=== PATIENT | female | born 1985 | race Caucasian/White ===

== ENCOUNTER 2021-03-05 21:17 | Emergency (ER) | payer SELFPAY ==
[2021-03-05 21:25] VITALS: BP 130/77; PULSE 96; RESP 18; TEMP 37.2; O2SAT 100; BMI 20.2
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
== END 2021-03-06 00:33 | disposition home or self-care (01) ==
PROVIDERS: Emergency Provider Emergency Medicine; Family Provider Pediatrics
DX: M79.601 Pain in right arm (principal); F17.200 Nicotine dependence, unspecified, uncomplicated; Y04.8XXA Assault by other bodily force, initial encounter
CPT/HCPCS: 73090; 73110; 99283